=== PATIENT | female | born 1960 | race Caucasian/White ===

== ENCOUNTER 2023-04-01 07:07 | Day surgery (SDC) | payer OTHER ==
--- NOTE | 2023-03-31 13:46 | NUR ---
ALLERGIES, MEDICATION AND MEDICAL HX UPDATED WITH PATIENT ON THE PHONE IN PREPARATION FOR SCHEDULED EGD TOMORROW.
[2023-04-01] VITALS (12 sets, daily range): BP systolic 113–177; BP diastolic 73–97
[~2023-04-01] VITALS: Ht 157.5 cm; Wt 62.4 kg
[~2023-04-01 07:07] MED LIST: ALBU90OI INH; ALLERGY RELIEF5 M1 PO; CREON DR 12,001 EACH PO; Cymbalta20 MG PO; FLONASE SENSIM5.9 M1 UD; GABA800 PO; Lactated Ringer's 1,000 ML IV SCH; PANT20 PO
--- NOTE | 2023-04-01 07:34 | NUR ---
PT IS A CURRENT EVERYDAY SMOKER, SHE CLAIMS "GUNKY COUGH" IN THE MORNING. LUNGS WERE CLEAR UPON AUSCULTATION AFTER PT DB/C.
--- NOTE | 2023-04-01 07:47 | NUR ---
04/01/23 0747 Kristian Perez HISTORY, CHART, MEDICATIONS AND ALLERGIES REVIEWED BEFORE START OF PROCEDURE. PATIENT CONFIRMS NPO STATUS AND AGREES WITH SCHEDULED PROCEDURE. 3-LEAD EKG REVIEWED WITH PHYSICIAN PRIOR TO START OF PROCEDURE. MONITOR INTACT WITH CONTINUOUS PULSE OXIMETRY,CAPNOGRAPHY, 3-LEAD EKG, INTERMITTENT BP. SUPPLEMENTAL O2 TO BE TITRATED THROUGHOUT PROCEDURE TO MAINTAIN O2 SATURATION ABOVE 90%. PATIENT DETERMINED TO BE ASA APPROPRIATE FOR PROPOFOL SEDATION PRIOR TO START OF PROCEDURE BY
[2023-04-01] MEDS ORDERED: propofoL 20 ML IV ONE (07:51)
[2023-04-01] MEDS ORDERED: Benzocaine Oral Spray 0.5ML UD ONE (07:51)
--- NOTE | 2023-04-01 08:49 | NUR ---
Patient up to Ambulate independently. Gait steady. Discharge instructions reviewed with patient. Patient verbalizes understanding. Copy given to patient to take home.Pt discharge to home, out via wheelchair with belongings and discharge instructions on hand.
== END 2023-04-01 08:51 | disposition home or self-care (01) ==
LOC: ORSCMMR 07:07 → ORD 08:00 → ORSCMMR 08:51
PROVIDERS: Internal Medicine Gastroenterology
PROC: 0DB58ZX Excision of Esophagus, Via Natural or Artificial Opening Endoscopic, Diagnostic (ICD-10-PCS; principal; 2023-04-01 08:00)
PROC: 0DB48ZX Excision of Esophagogastric Junction, Via Natural or Artificial Opening Endoscopic, Diagnostic (ICD-10-PCS; principal; 2023-04-01 08:00)
DX: K21.00 Gastro-esophageal reflux disease with esophagitis, without bleeding (principal); R10.9 Unspecified abdominal pain; Z87.19 Personal history of other diseases of the digestive system; F17.210 Nicotine dependence, cigarettes, uncomplicated; Z79.899 Other long term (current) drug therapy
CPT/HCPCS: 88305; A9270; J2704; J7120